=== PATIENT | female | born 2005 | race Caucasian/White ===

== ENCOUNTER 2023-09-03 11:13 | Outpatient (CLI) | payer BC, SELFPAY ==
[2023-09-03 15:50] LABS: Basophils Absolute Auto 0.1 K/mm3 (0.0-0.1); Basophils Percent Auto 1.2 % (0.2-1.2); Eosinophils Absolute Auto 0.1 K/mm3 (0-0.3); Eosinophils Percent Auto 1.9 % (0-4.4); Hematocrit 40.3 % (37.0-47.0); Hemoglobin 13.6 g/dL (12.0-15.0); Immature Granulocyte Absolute 0.01 K/mm3 (0.00-0.031); Immature Granulocyte Percent A 0.2 % (0-0.5); Lymphocytes Absolute Auto 1.49 K/mm3 (0.9-3.2); Lymphocytes Percent Auto 34.7 % (18.3-44.2); Mean Corpuscular HGB Conc 33.7 g/dl (32-36); Mean Corpuscular Volume 91.8 fl (80-100); Mean Platelet Volume 11.4 fl (7.4-10.4); Monocytes Absolute Auto 0.4 K/mm3 (0.1-0.6); Monocytes Percent Auto 8.9 % (2.6-8.5); Neutrophils Absolute Auto 2.3 K/mm3 (1.3-6.7); Neutrophils Percent Auto 53.1 % (45.5-73.1); Platelet Count Result 174 k/mm3 (150-375); Red Blood Count 4.39 M/mm3 (4.2-5.4); White Blood Count 4.3 K/mm3 (4.5-10.0)
[2023-09-03 16:46] LABS: Alanine Aminotransferase 11 U/L (6-35); Albumin Level 4.6 g/dL (3.5-5.1); Alkaline Phosphatase 54 U/L (38-126); Anion Gap 7 mmol/L (4-12); Aspartate Amino Transferase 27 U/L (14-36); Bilirubin,Total 0.9 mg/dL (0.2-1.3); Blood Urea Nitrogen 11 mg/dL (7-17); Calcium 9.6 mg/dL (8.4-10.2); Carbon Dioxide 30 mmol/L (22-30); Chloride 100 mmol/L (98-107); Estimated Glomerular Filt Rate > 60; Glucose 85 mg/dL (65-110); Potassium 4.6 mmol/L (3.4-5.0); Sodium 137 mmol/L (137-145)
[2023-09-05 17:28] LABS: NIL 0.04 IU/mL; Quantiferon TB Plus, 1T NEGATIVE (NEGATIVE); TB1-NIL <0.00 IU/mL; TB2-NIL <0.00 IU/mL
== END 2023-09-03 11:14 | disposition home or self-care (01) ==
LOC: ANHGOSHLAB 11:14
PROVIDERS: PCP Clinical Nurse Specialist; Visit Provider Clinical Nurse Specialist
DX: Z13.29 Encounter for screening for other suspected endocrine disorder (principal); Z11.1 Encounter for screening for respiratory tuberculosis
CPT/HCPCS: 36415; 80053; 85025; 86480

== ENCOUNTER 2024-08-21 11:02 | Outpatient (CLI) | payer BC, SELFPAY ==
--- OUTSIDE RECORDS SUMMARY | 2024-08-21 11:08 | XMS_ITS | Referral Summary ---
Author Organization [address] Address [address] [place] [id number] Care Team Providers Care Community Nutrition Educator Name Role Phone Kerry Sanchez MD Primary Care Provider Allergies No known active allergies Medications No known medications Active Problems No known active problems Social History Tobacco Use Types Packs/Day Years Used Date Smoking Tobacco: Never Assessed Comments Unknown Sex and Gender Information Value Date Recorded Sex Assigned at Not on file Legal Sex Female 5:33 PM CDT Gender Identity Not on file Sexual Orientation Not on file Last Filed Vital Signs Vital Sign Reading Time Taken Comments Blood Pressure 110/76 05/26/2023 5:41 PM CDT Pulse 89 05/26/2023 5:41 PM CDT Temperature 36.9 C (98.5 F) 05/26/2023 5:41 PM CDT Respiratory Rate 18 05/26/2023 5:41 PM CDT Oxygen Saturation 99% 05/26/2023 5:41 PM CDT Inhaled Oxygen Concentration - - Weight 70.9 kg (156 lb 3.2 oz) 05/26/2023 5:41 P M CDT Height 160 cm (5' 3) 05/26/2023 5:41 PM CDT Body Mass Index 27.67 05/26/2023 5:41 PM CDT Plan of Treatment Not on file Insurance [facility] [employer] Care Teams Community Nutrition Educator Relationship Specialty Start Date End Date Kerry Sanchez MD 10 [facility] [address] [place] [address] PCP - General Internal Medicine 05/26/23
--- OUTSIDE RECORDS SUMMARY | 2024-08-21 11:08 | XMS_ITS | Clinical Summary ---
Author Organization [facility] Address [address] [place] [address] Phone Care Team Providers Care Thermometer Tester Name Role Phone Kerry Sanchez MD Primary Care Provider Allergies Active Allergy Reactions Criticality Noted Date Comments No Known Drug Allergy Other (see Comments) Medications No known medications Active Problems Problem Noted Date Diagnosed Date Family history of hypertension 08/21/2017 BMI (body mass index), pedia tric, 85% to less than 95% for age 0506/17/2014 Immunizations Immunization Administration Dates Next Due Covid-19, Mrna, Lnp-s, Pf, 3 0 Mcg/0.3 Ml Dose ([employer]) 06/20/2020,05/25/2020 DTAP VACCINE 11/03/2004 DTAP/HEPB/IPV Vaccine 02/02/2004,2003,09/11 H1N1 INJECTION 12/16/2008 HIB Vaccine (PRP-T) 11/03/2004, 4,2003,09/28 Influenza Vaccine Nasal 01/15/2007 Influenza Vaccine greater than 3 yrs 02/18/2006, 03/10/2004,02/02/2004 Influenza Vaccine less than 3 yrs 02/02/2004 Influenza Vaccine, MDCK,quad rivalent, pres free 10/14/2019 Influenza Vaccine, Quadrivalent, PF 04/12/2021,1 02/12/2017,12/26/2016 MMR Vaccine 08/04/2004 Meningococcal MCV4O 08/21/2019 PUR DTAP/IPV Combined Vaccine 07/26/2008 PUR FLU 3+ YRS PRES FREE QUAD IM 12/02/2015 PUR FLU INTRANASAL 11/17/2012,12/10/2011, 010 PUR FLU PRES FREE AGE 3+ FULL IM 11/18/2007 PUR FLU QUADRIVALENT INTRANASAL 11/03/2014,11/20 PUR HEP A PED ADOLES 2 DOSE IM 04/06/2015,2014 PUR Human Papillomavirus 9-v alent Vaccine 04/06/2015,11/03/2014,08/25/2014 PUR MENINGOCOCCAL IM 08/25/2014 PUR MMR SQ 07/26/2008 PUR TDAP 7+ YRS IM 08/25/2014 Pneumococcal Vaccine Peds 08/04/2004,,2003,09/28 Pur Flu Pres Free Quadrivalent 11/24/2021 Pur Varicella Virus SQ 07/26/2008 TDAP Vaccine 08/22/2020 Varicella Vaccine Live 11/03/2004 Family History Relation Name Status Comments Father Alive Mother Alive Social History Tobacco Use Types Packs/Day Years Used Date Smoking Tobacco: Never Smokeless Tobacco: Never Alcohol Use Standard Drinks/Week Comments Not Asked 0 (1 standard drink = 0.6 oz pur e alcohol) PHQ-2 Answer Date Recorded Total Score - Questions 1-9 0 08/11 Comments No Sex and Gender Information Value Date Recorded Sex Assigned at Not on file Legal Sex Female 3:04 AM 4TH GRADE TEACHER Gender Identity Not on file Sexual Orientation Not on file Last Filed Vital Signs Vital Sign Reading Time Taken Comments Blood Pressure 102/62 02/13/2023 9:07 AM 4TH GRADE TEACHER Pulse 70 02/13/2023 9:07 AM 4TH GRADE TEACHER Temperature 36.7 C (98 F) 08/05/2022 10:52 AM CDT Respiratory Rate 16 02/13/2023 9:07 AM 4TH GRADE TEACHER Oxygen Saturation 98% 02/13/2023 9:07 AM 4TH GRADE TEACHER Inhaled Oxygen Concentration - - Weight 69.9 kg (154 lb) 02/13/2023 9:07 AM 4TH GRADE TEACHER Height 160 cm (5' 3) 02/13/2023 9:07 AM 4TH GRADE TEACHER Body Mass Index 27.28 02/13/2023 9:07 AM 4TH GRADE TEACHER Plan of Treatment Health Maintenance Due Date Last Done Comments Hepatitis C Virus (HCV) Screening 2003 Meningococcal B Immunization (1 of 2 - Standard) 2019 SARS-COV-2 Immunization ( - season) 2023 01/27/2021, 06/20/2020, 05/25/2020 Pap Smear 07/21/2024 Influenza Immunization (#1) 10/12/202410/13, 11/24/2021, 04/12/2021, Additional history exists DTaP/Tdap/Td Immunization (8 - Td or Tdap) 08/22/2030 08/22/2020, 08/25/2014, 07/26/2008, Additional history exists Respiratory Syncytial Virus (RSV) Immunization (Adult) (1 - 1-dose 75+ series) 07/21/2078 Hepatitis B Immunization Completed 004, 2003, 2003 Pneumococcal Immunization Combined Aged Out 08/04/2004, 02/02/2004, 2003, Additional history exists No longer eligible based on patient's age to complete this topic Measles Mumps Rubella (MMR) Immunization Discontinued 07/26/2008, 08/04/2004 Polio (IPV) Immunization Discontinued 009, 02/02/2004, 2003, Additional history exists Varicella Immunization Discontinued 07/26/2008, 2004 Hepatitis A Immunization Discontinued 04/06/2015, 08/11 Human Papillomavirus (HPV) Immunization Completed 04/06/2015, 11/03/2014, 08/25/2014 Meningococcal Immunization (ACWY) Completed 08/21/2019, 08/25/2014 Rotavirus Immunization Aged Out No lo nger eligible based on patient's age to complete this topic Insurance * Guarantor: Marcela Becerril Account Type Relation to Patient Date of Phone Billing Address Personal/Family Mother 1973 [phone] (Work) [address] [place] [address] [facility] Care Teams Thermometer Tester Relationship Specialty Start Date End Date Kerry Sanchez MD [address] [place] [address] PCP - General Pediatrics 04/12/21
--- OUTSIDE RECORDS SUMMARY | 2024-08-21 11:08 | XMS_ITS | Clinical Summary ---
Author Organization [address] Address [facility] [place] [address] Care Team Providers Care Director Of Player Personnel Name Role Phone Kerry Sanchez MD Primary [...] on file Sexual Orientation Not on file Obstetrics History Last Filed Vital Signs Vital Sign Reading [...] 05/26/2023 5:41 PM CDT Plan of Treatment Health Maintenance Due Date Last Done Comments Cervical Cancer Screening 2003 Depression Screening 2003 Hepatitis C Screening 2003 HPV Vaccines (1 - 3-dose series) 07/21/2018 Meningococcal B Vaccine (1 of 2 - Standard) 2019 Regular Well Visit/Exam 18-64 07/21/2021 Covid-19 Vaccine ( - season) 2023 06/20/2020, 05/25/2020 Influenza Vaccine (Season Ended) 2024 11/24/2021, 04/12/2021, 10/14/2019, Additional history exists DTaP/Tdap/Td Vaccine (8 - Td or Tdap) 08/22/2030 08/22/2020, 08/25/2014, 07/26/2008, Additional history exists Hepatitis B Screening Completed 02/02/2004 , 2003, 2003 Varicella Vaccines Completed 07/26/2008, 11/03/2004 Meningococcal Vaccine Completed 08/21/2019, 015 Pneumococcal vaccine <65 Aged Out No longer eligible based on patient's age to complete this topic Insurance [facility] [employer] Member Subscriber Plan / Payer (Ef fective 2016-Present) Name:Angela Rivera Relation to Subscriber:Child Name:HARLAN RIVERA Date of :1971 Address: [address] [place], [place] [address] [address] Payer ID:[id number] (NAIC) Group ID:[id number] Type:[facility] Address: [facility] [id number] [place] [id number] Care Teams Director Of Player Personnel Relationship Specialty Start Date End Date Kerry Sanchez MD 10 [facility] [address] [place], [place] [address] PCP - General Internal Medicine 05/26/23
== END 2024-08-21 11:03 | disposition home or self-care (01) ==
LOC: ANHGOSHLAB 11:04
PROVIDERS: PCP Clinical Nurse Specialist; Visit Provider Clinical Nurse Specialist
DX: Z11.1 Encounter for screening for respiratory tuberculosis (principal)
CPT/HCPCS: 86480

== ENCOUNTER 2025-01-13 13:25 | Outpatient (CLI) | payer BC, SELFPAY ==
--- NOTE | ~2025-01-13 | MR_ITS ---
EXAMINATION: MR brain/brain stem wo/w con DATE: 01/13/2025 15:03 FIRST MATE INDICATION: Altered mental status. Periodic episodes of confusion without loss of consciousness TECHNIQUE: Magnetic resonance imaging (MRI) of the brain and brainstem was performed without and with 13 cc MultiHance intravenous contrast. Sequences included sagittal and axial T1-weighted SE, axial diffusion-weighted FS SE, axial T2*-weighted GRE, axial T2-weighted FLAIR Propeller, and axial T2-weighted Propeller. Apparent diffusion coefficient (ADC) maps were created. COMPARISON: No prior studies for comparison. FINDINGS: The brain volume and ventricular system are within normal limits. The brain parenchymal signal intensity pattern and [place]/white matter is normal and there is no evidence of hemorrhage, space occupying masses or infarctions. The flow signal voids of the major arterial structures about the [place] and within the major dural venous sinuses appear grossly unremarkable and patent. The seventh and eighth cranial nerve complexes are normal. The mid sagittal image demonstrates a normal craniovertebral junction and corpus callosum. The paranasal sinuses are grossly unremarkable. No abnormal contrast enhancement was appreciated. IMPRESSION: 1: Unremarkable MRI of the brain. Reviewed, dictated and finalized at location I. T MATE
--- OUTSIDE RECORDS SUMMARY | 2025-01-13 14:41 | XMS_ITS | Clinical Summary ---
Author Organization [address] Address [facility] [place] [address] Care Team Providers Care Dipper And Baker Name Role Phone Kerry Sanchez MD Primary [...] Regular Well Visit/Exam 18-64 07/21/2021 Covid-19 Vaccine (3 - season) 2024 06/20/2020, 05/25/2020 Influenza Vaccine (#1) 2024 2, 04/12/2021, 10/14/2019, Additional history exists DTaP/Tdap/Td Vaccine (8 - Td or Tdap) 08/22/2030 08/22/2020, 08/25/2014, 07/26/2008, Additional history exists Hepatitis B Screening Completed 02/02/2004 , 2003, 2003 Varicella Vaccines Completed 07/26/2008, 11/03/2004 Meningococcal Vaccine Completed 08/21/2019, 015 Pneumococcal vaccine <65 Aged Out No longer eligible based on patient's age to complete this topic Insurance [facility] [employer] Member Subscriber Plan / Payer (Ef fective 2016-Present) Name:Angela Rivera Relation to Subscriber:Child Name:HARLAN RIVERA Date of :1973 Address: [address] [place] [address] Payer ID:[id number] (NAIC) Group ID:[id number] Type:[facility] Address: [facility] [id number] [place] [id number] Care Teams Dipper And Baker Relationship Specialty Start Date End Date Kerry Sanchez MD 10 [facility] 100 [place], [place] [address] PCP - General Internal Medicine 05/26/23
--- OUTSIDE RECORDS SUMMARY | 2025-01-13 14:41 | XMS_ITS | Clinical Summary ---
Author Organization [facility] Address [address] [place] [address] Phone Care Team Providers Care Email Producer Name Role Phone Kerry Sanchez MD Primary [...] Lnp-s, Pf, 3 0 Mcg/0.3 Ml Dose ([employer]) 06/20/2020,05/25/2020 DTAP VACCINE 11/03/2004 DTAP/HEPB/IPV Vaccine 02/02/2004,2003,09/11 [...] on file Legal Sex Female 3:04 AM PATIENT TRANSPORT OFFICER Gender Identity Not on file Sexual Orientation Not on file Last Filed Vital Signs Vital Sign Reading Time Taken Comments Blood Pressure 102/62 02/13/2023 9:07 AM PATIENT TRANSPORT OFFICER Pulse 70 02/13/2023 9:07 AM PATIENT TRANSPORT OFFICER Temperature 36.7 C (98 F) 08/05/2022 10:52 AM CDT Respiratory Rate 16 02/13/2023 9:07 AM PATIENT TRANSPORT OFFICER Oxygen Saturation 98% 02/13/2023 9:07 AM PATIENT TRANSPORT OFFICER Inhaled Oxygen Concentration - - Weight 69.9 kg (154 lb) 02/13/2023 9:07 AM PATIENT TRANSPORT OFFICER Height 160 cm (5' 3) 02/13/2023 9:07 AM PATIENT TRANSPORT OFFICER Body Mass Index 27.28 02/13/2023 9:07 AM PATIENT TRANSPORT OFFICER Plan of Treatment Health Maintenance Due Date Last Done Comments Hepatitis C Virus (HCV) Screening 2003 Meningococcal B Immunization (1 of 2 - Standard) 2019 Pap Smear 07/21/2024 Influenza Immunization (#1) 2024 0905/2022, 11/24/2021, 04/12/2021, Additional history exists SARS-COV-2 Immunization (2024- season) 2024 01/27/2021, 06/20/2020, 05/25/2020 DTaP/Tdap/Td Immunization (8 - Td or Tdap) [...] 02/02/2004, 2003, Additional history exists Varicella Immunization Completed 07/26/2008, 2004 Hepatitis A Immunization Discontinued 04/06/2015, 08/11 Human Papillomavirus (HPV) Immunization Completed 04/06/2015, 11/03/2014, 08/25/2014 Meningococcal Immunization (ACWY) Completed 08/21/2019, 08/25/2014 Rotavirus Immunization Aged Out No lo nger eligible based on patient's age to complete this topic Insurance * Guarantor: Marcela Becerril Account Type Relation to Patient Date of Phone Billing Address Personal/Family Mother 1973 [phone] (Work) [address] [place] [address] [facility] Care Teams Email Producer Relationship Specialty Start Date End Date Kerry Sanchez MD [address] [place] [address] PCP - General Pediatrics 04/12/21"
== END 2025-01-13 13:26 | disposition home or self-care (01) ==
PROVIDERS: PCP Clinical Nurse Specialist; Visit Provider Clinical Nurse Specialist
DX: R41.82 Altered mental status, unspecified (principal)
CPT/HCPCS: 70553; A9577

== ENCOUNTER 2025-01-25 07:43 | Outpatient (CLI) | payer BC, SELFPAY ==
[2025-01-25 08:03] LABS: Hematocrit 40.7 % (37.0-47.0); Hemoglobin 13.8 g/dL (12.0-15.0); Immature Granulocyte Percent A 0.2 % (0-0.5); Lymphocytes Absolute Auto 1.67 K/mm3 (0.9-3.2); Mean Corpuscular HGB Conc 33.9 g/dl (32-36); Mean Corpuscular Hemoglobin 30.7 pg (26-34); Mean Corpuscular Volume 90.4 fl (80-100); Nucleated Red Blood Cells Absolute Auto 0.000 K/mm3 (0.0-0.012); Nucleated Red Blood Cells Perc 0.0 % (0.0-0.2); Platelet Count Result 195 k/mm3 (150-375); Red Blood Count 4.50 M/mm3 (4.2-5.4); White Blood Count 4.9 K/mm3 (4.5-10.0)
[2025-01-25 08:29] LABS: Alanine Aminotransferase 11 U/L (6-35); Albumin Level 4.7 g/dL (3.5-5.1); Alkaline Phosphatase 55 U/L (38-126); Anion Gap 5 mmol/L (4-12); Aspartate Amino Transferase 20 U/L (14-36); Bilirubin,Total 0.8 mg/dL (0.2-1.3); Calcium 9.7 mg/dL (8.4-10.2); Carbon Dioxide 29 mmol/L (22-30); Chloride 103 mmol/L (98-107); Estimated Glomerular Filt Rate > 60; Glucose 96 mg/dL (65-110); Potassium 4.2 mmol/L (3.4-5.0); Sodium 137 mmol/L (137-145); Total Protein 7.7 g/dL (6.3-8.2)
[2025-01-25 08:48] LABS: Blood Urea Nitrogen 12 mg/dL (7-17)
[2025-01-25 09:05] LABS: Thyroid Stimulating Hormone 2.290 uIU/mL (0.465-4.680)
--- NOTE | 2025-01-26 11:54 | WPDNEUROLOGY ---
Neurology EEG Report General Information Date of Study: 01/25/25 TEST EEG DIAGNOSIS Altered mental status. CONDITION OF RECORDING Awake and drowsy. EEG NUMBER [id number] CLINICAL HISTORY 19 years old female who is having episodes of acute mental status changes. Patient states that these episodes started when she was 15 years old and stop for 2 years after she stopped control pills, but started happening more often a gain when she started taking Zoloft. She does not notice any triggers and it is at different times in the day. She has them 1 to 2 times per month, can also go months without happening at all. Patient described an aura of things closing in on her and strong sense of Merary Vu. She then can talk or move, but aware of what is going on that last for a few seconds to a minute. Afterwards she feels nauseous, tired, heart is racing, and takes a few minutes to reorient herself that last 2 to 5 minutes. EEG DESCRIPTION Basic resting occipital frequency consists of medium voltage 9 to 11 hertz per 2nd alpha admixed with low-voltage 15 to 18 hertz per 2nd beta and multiple eye movements artifacts. Hyperventilation produced normal and symmetrical buildup. Photic stimulation produced normal drive. Non paroxysmal. Nonfocal. Nonlateralizing. IMPRESSION Normal record.
== END 2025-01-25 07:44 | disposition home or self-care (01) ==
LOC: ANHLAB 07:48 → ANHNEURO 07:50
PROVIDERS: PCP Clinical Nurse Specialist; Visit Provider Clinical Nurse Specialist
DX: Z13.29 Encounter for screening for other suspected endocrine disorder (principal); R41.82 Altered mental status, unspecified; F41.9 Anxiety disorder, unspecified
CPT/HCPCS: 36415; 80053; 84443; 85025; 95816